=== PATIENT | male | born 1970 | race Two or more races ===

== ENCOUNTER 2023-09-26 12:18 | Emergency (ER) | payer OTHER ==
[~2023-09-26] VITALS: Ht 167.6 cm; Wt 61.0 kg
[2023-09-26 12:26] VITALS: BP 127/79; PULSE 74; RESP 15; O2SAT 100
[2023-09-26 13:23] LABS: Urine Bacteria NONE SEEN /hpf (None Seen); Urine Blood TRACE /uL (Negative); Urine Budding Yeast MANY /hpf (None Seen); Urine Clarity HAZY (Clear); Urine Color Colorless (Yellow); Urine Protein, UAD TRACE (Negative); Urine Specific Gravity 1.015 (1.001-1.035); Urine Urobilinogen Normal (Negative); Urine WBC 306 /hpf (0 - 3); Urine WBC Clumps PRESENT /hpf (None Seen); Urine pH 6.5 (5.0-8.0)
== END 2023-09-26 14:04 ==
LOC: ER 12:18 → EEVIPCON 12:18 → ER 14:04
DX: N40.1 Benign prostatic hyperplasia with lower urinary tract symptoms (principal); R33.8 Other retention of urine
CPT/HCPCS: 81001

== ENCOUNTER → 2024-08-28 | Outpatient (CLI) | payer OTHER ==
--- NOTE | 2024-08-28 09:02 | DVH ---
Exam: CT CT AB PEL WO CON-NO ORAL OR IV History: FOLLOW UP PRIOR TO UROLOGY Comparison Study: None Technique: Multidetector spiral CT of the abdomen and pelvis was performed from lung bases to pubic symphysis. Imaging was performed without IV contrast. Axial, coronal and sagittal multiplanar reform ats were obtained from the axial data set by the technologist. Radiation dose : Abdomen/Pelvis: CTDIvol 6.18 mGy, DLP 373.86 mGy*cm. Findings: Evaluation of solid organs is limited due to lack of intravenous contrast use. Lung Bases: No acute or significant lung base finding. Normal heart size. No pleural or pericardial effusion. Liver: The liver is normal in size. No focal lesions. Gallbladder and biliary Tree: Cholelithiasis noted without secondary findings of cholecystitis or apurva iary obstruction. Spleen: Unremarkable Pancreas: The pancreas is grossly normal in appearance. Adrenal Glands: Unremarkable Kidneys: Kidneys are grossly normal without calculi or hydronephrosis. Bladder: Grossly unremarkable for degree of distention. Bowel: The stomach is grossly normal in appearance. Small bowel and colon are normal in caliber and d istribution. The appendix is not visualized; however, no secondary findings of acute appendicitis id entified. Ascites: Absent Lymphadenopathy: No mesenteric, retroperitoneal or periportal lymphadenopathy. Abdominal wall and Mesentery: Unremarkable. Vasculature: The visualized abdominal aorta is normal in size and caliber. There is atherosclerotic calcification of the aorta and its branches. Evaluation of abdominal and pelvic vessels is limited d ue to lack of intravenous contrast. Pelvic Organs: Prostate is enlarged. Musculoskeletal: Compression deformity of T11, appears chronic. IMPRESSION: 1. No acute abdominal or pelvic findings. No hydronephrosis or nephrolithiasis. Cholelithiasis. Prost atomegaly with evidence of prior TURP. Radiation optimization: All CT scans at this facility use at least one of these dose optimization solomon hniques: Automated exposure control mA and/or kV adjustment per patient size (includes targeted exams where dose is matched to clinical indication) or iterative reconstruction. HS:Y
== END | disposition home or self-care (01) ==
LOC: EEVIPCON 08:00 → XYW 08:07
PROVIDERS: ATTEND Personal Emergency Response Attendant
DX: K80.20 Calculus of gallbladder without cholecystitis without obstruction (principal); N40.0 Benign prostatic hyperplasia without lower urinary tract symptoms; I10 Essential (primary) hypertension; N39.9 Disorder of urinary system, unspecified; M79.609 Pain in unspecified limb; R33.9 Retention of urine, unspecified; E87.1 Hypo-osmolality and hyponatremia; I70.0 Atherosclerosis of aorta; M43.8X4 Other specified deforming dorsopathies, thoracic region; Z90.79 Acquired absence of other genital organ(s)
CPT/HCPCS: 74176

== ENCOUNTER 2025-05-06 07:13 | Day surgery (SDC) | payer OTHER ==
[~2025-05-06] VITALS: Ht 167.6 cm; Wt 59.9 kg
[2025-05-06] MEDS ORDERED: CIPROFLOXACIN 400MG/200ML 200 ML IV ONE (08:26)
[2025-05-06] MEDS ORDERED: MIDAZOLAM HCL 2MG/2ML 2ml VIAL (1mg/ml) ONE (10:07)
[2025-05-06] MEDS ORDERED: fentaNYL CITRATE 100 MCG/2 ML VL ONE (10:07)
[2025-05-06] MEDS ORDERED: PROPOFOL 10 MG/ML 20 ML IV ONE (10:18)
[2025-05-06] MEDS ORDERED: PHENYLEPHRINE HCL 10 MG/ML VL ONE (10:18)
[2025-05-06 10:45] VITALS: PULSE 78; RESP 12; TEMP 97.9; O2SAT 100
[2025-05-06] MEDS ORDERED: MIDAZOLAM HCL 2MG/2ML 2ml VIAL (1mg/ml) IV PRN (11:00)
[2025-05-06] MEDS ORDERED: ONDANSETRON HCL 4 MG/2 ML VIAL IV ONE (11:00)
[2025-05-06] MEDS ORDERED: MORPHINE SULFATE 4 MG/ML SYR/VIAL IV PRN (11:00)
[2025-05-06] MEDS ORDERED: hydrALAZINE HCL 20 MG/ML VL IV PRN (11:00)
[2025-05-06] MEDS ORDERED: HYDROmorphone HCL 2 MG/ML VL/or syr IV PRN (11:00)
--- NOTE | 2025-05-06 11:04 | DVHNC2 ---
Procedure - OPERATIVE REPORT Pre-op. Diagnosis: Severe urethral stricture Perineal urethrostomy Microhematuria UTI Post-op. Diagnosis: Same as pre-op diagnosis Operation: Cystoscopy (56595) Urethral dilation Garcia insertion Anesthesia: MAC/General Indications: This patient has a complicated history of undergoing a perineal urethrostomy in 2020 in [place] for urinary diversion due to severe urethral stricture disease. CT Scan (08/28/24) showed prior TUR effect on prostate and normal kidneys. He c/o nocturia and slow stream x "years". He mainly voids by sitting. Details of Procedure: The indications, risks, complications, alternatives and benefits of a diagnostic cystoscopy is discussed with the patient. All questions were encouraged and answered. Patient elected to proceed and consent is obtained. Patient is given IV anesthesia in the appropriate lithotomy position. Area of the genitalia is prepped and draped in usual sterile fashion. Cystoscope is used to examine the perineal urethra and bladder. Findings are noted. Patient tolerated the procedure well and all instrument counts are correct at the end of the examination. Specimens: None Complications: None Findings: Urethra: distally closed. Proximal urethra patent, but stenotic and 17 F cysstoscope would not pass. Prostate: post TUR effect Bladder: Distended. 2+ trabeculation. No FB, tumors or stones seen. Notes: Garcia catheter to drainage x 3 days TAVON AGUIAR MD May 06, 2025 11:04
--- NOTE | 2025-05-06 11:07 | DVHDS2 ---
New Physician D'charge PN Admitting Diagnosis Admitting Diagnosis Urethral stricture disease Perineal urethrostomy Discharge Diagnosis Same Operations or Procedures Cystoscopy with urethral dilation and Garcia catheter placement Reason(s) For Hospitalization Surgery Treatment Plan Discharge Condition of Discharge Good Disposition Home Discharge Instructions Diet: Regular Activity: Light activity Activity comment: Catheter management Medications: Given Follow Up Care Follow Up/Referral: Two weeks Discharge Statement: "Patient was advised to return to the ER or call 911 if any headaches, dizziness, shortness of breath, chest pain, abdominal pain, bleeding, fevers, or worsening of medical condition. Patient was counseled about treatment plan, medications, possible side effects, patientverbalized understanding. All questions were answered to the best of my ability. This discharge took greater then 30 minutes in planning, reviewing documentation, counseling the patient, and discussing with other team members." TAVON AGUIAR MD May 06, 2025 11:07
[2025-05-06 11:35] VITALS: BP 165/69; PULSE 72; RESP 14; O2SAT 100
== END 2025-05-06 11:40 | disposition home or self-care (01) ==
LOC: SUR 07:13 → EEVIPCON 07:13 → WEST WING 07:13 → UNDOADMIN 07:13 → SUR 11:40
PROVIDERS: ATTEND Urology
DX: N35.819 Other urethral stricture, male, unspecified site (principal); R31.29 Other microscopic hematuria; N32.89 Other specified disorders of bladder; I10 Essential (primary) hypertension; Z87.891 Personal history of nicotine dependence; Z79.899 Other long term (current) drug therapy; Z98.890 Other specified postprocedural states; Z90.49 Acquired absence of other specified parts of digestive tract
CPT/HCPCS: 52000; A4315; C1758; J0744; J1100; J2250; J2371; J2704; J3010

== ENCOUNTER 2025-09-03 07:55 | Outpatient (CLI) | payer OTHER ==
--- NOTE | 2025-09-03 10:00 | DVH ---
Exam: CT CT AB PEL WO CON-NO ORAL OR IV History: S/P CYSTOSCOPY WITH URETHRAL DILATION. Comparison Study: CT CT AB PEL WO CON-NO ORAL OR IV on DOS: 08/28/24 Technique: Multidetector spiral CT of the abdomen and pelvis was performed from lung bases to pubic symphysis. Imaging was performed without intravenous contrast. Coronal and sagittal multiplanar reformats were obtained from the axial data set by the technologist. Radiation Dose : 1. Abdomen/Pelvis: CTDIvol 7.94 mGy, DLP 451.71 mGy*cm. Findings: Evaluation of vasculature and solid organs is limited due to lack of intravenous contrast use. Lung Bases: Lung bases are clear. The heart is normal in size. Coronary artery calcifications noted. Liver: The liver is normal in size. No focal lesions. Gallbladder and Biliary Tree: There are gallstones. No intrahepatic or extrahepatic biliary ductal dilatation. Spleen: Unremarkable Pancreas: The pancreas is grossly unremarkable. Adrenal Glands: Unremarkable Kidneys: Mild bilateral hydroureteronephrosis. No renal calculi. Tiny vascular calcification in the left renal pelvis. GI tract: Small hiatal hernia. No evidence of small bowel wall thickening or abnormal dilatation to suggest bowel obstruction. Scattered stool throughout the colon. The appendix is not visualized, however no inflammatory changes in the right lower quadrant to suggest acute appendicitis. Peritoneum/mesentery/retroperitoneum. No evidence of free intraperitoneal air. No ascites. No evidence of suspicious lymphadenopathy. Abdominal Wall: Unremarkable. Vasculature: The visualized abdominal aorta is normal in size and caliber. Evaluation of abdominal and pelvic vessels is limited due to lack of intravenous contrast. Multiple phleboliths in the left retroperitoneum and the pelvis Urinary Bladder: The urinary bladder is underdistended with wall thickening. There is a Garcia catheter present. Pelvic Organs: Seminal vesicles are unremarkable. Prostate not well visualized. Musculoskeletal: Chronic T11 compression deformity causing 25% vertebral body height loss. No osseous retropulsion. No lumbar spine fracture or abnormal alignment. IMPRESSION: 1. Mild bilateral hydroureteronephrosis. No renal calculi. 2. Mild wall thickening in the urinary bladder. 3. Cholelithiasis.
== END 2025-09-03 17:00 | disposition home or self-care (01) ==
LOC: CT 07:55
DX: K80.20 Calculus of gallbladder without cholecystitis without obstruction (principal); N13.30 Unspecified hydronephrosis; N36.8 Other specified disorders of urethra; K44.9 Diaphragmatic hernia without obstruction or gangrene; I25.10 Atherosclerotic heart disease of native coronary artery without angina pectoris; I87.8 Other specified disorders of veins; M43.8X4 Other specified deforming dorsopathies, thoracic region
CPT/HCPCS: 74176